=== PATIENT | male | born 1960 | race Caucasian/White ===

== ENCOUNTER 2024-07-02 08:58 | Day surgery (SDC) | payer BC, OTHER ==
[2024-07-02] MEDS: Lactated Ringers 1,000 ML IV SCH (09:31)
[2024-07-02] MEDS ORDERED: Lidocaine 2% 5 ML SDV ONE (10:39)
[2024-07-02] MEDS ORDERED: Propofol 200 MG/20 ML SDV ONE (10:39)
== END 2024-07-02 12:10 | disposition home or self-care (01) ==
LOC: MW.SDS 08:58
PROVIDERS: ATTEND Surgery
DX: Z12.11 Encounter for screening for malignant neoplasm of colon (principal); K64.8 Other hemorrhoids; K57.30 Diverticulosis of large intestine without perforation or abscess without bleeding; K29.50 Unspecified chronic gastritis without bleeding; K31.7 Polyp of stomach and duodenum; K63.5 Polyp of colon; K21.9 Gastro-esophageal reflux disease without esophagitis; I10 Essential (primary) hypertension; E78.00 Pure hypercholesterolemia, unspecified; Z79.899 Other long term (current) drug therapy
CPT/HCPCS: 43239; 45380; J2003; J2704; J7120; 00813